=== PATIENT | female | born 1980 | race Two or more races ===

== ENCOUNTER 2017-08-28 11:19 | Emergency (ER) | payer OTHER | END 2017-08-28 11:34 | disposition home or self-care (01) | LOC: FTE 11:19 → E/R 11:34 | DX: J20.9 Acute bronchitis, unspecified (principal); J32.9 Chronic sinusitis, unspecified | CPT/HCPCS: 99284; Z7502 ==

== ENCOUNTER 2018-08-31 10:03 | Emergency (ER) | payer OTHER ==
[2018-08-31] MEDS: IBUPROFEN 600 MG TAB PO (10:53)
== END 2018-08-31 12:53 | disposition home or self-care (01) ==
LOC: FTE 10:03
DX: M54.6 Pain in thoracic spine (principal); M79.10 Myalgia, unspecified site
CPT/HCPCS: 72072; 81025; 99283-25

== ENCOUNTER 2018-11-12 18:58 | Emergency (ER) | payer OTHER ==
[2018-11-12 21:08] LABS: ADD UMIC NO; UR ASCORBIC ACID NEGATIVE (NEGATIVE); UR BILIRUBIN (Dip) NEGATIVE (NEGATIVE); UR BLOOD (Dip) NEGATIVE (NEGATIVE); UR CLARITY CLEAR (CLEAR); UR COLOR YELLOW (YELLOW); UR GLUCOSE (Dip) NEGATIVE (NEGATIVE); UR KETONES (Dip) NEGATIVE (NEGATIVE); UR LEUKOCYTE ESTERASE (Dip) NEGATIVE Leu/ul (NEGATIVE); UR NITRITE (Dip) NEGATIVE (NEGATIVE); UR SPECIFIC GRAVITY (Dip) 1.015 (1.003-1.030); UR TOTAL PROTEIN (Dip) NEGATIVE (NEGATIVE); UR UROBILINOGEN (Dip) NEGATIVE (NEGATIVE)
[2018-11-12] MEDS: CYCLOBENZAPRINE 10 MG TAB PO (21:14)
[2018-11-12] MEDS: KETOROLAC 30 MG INJ IM (21:14)
[2018-11-12] MEDS: morphine 4 MG/ML VIAL IM ×2 (21:15→21:31)
[2018-11-12] MEDS: SOD CHLORIDE 0.9% 1,000 ML IV (22:12)
[2018-11-12] MEDS: ONDANSETRON 4 MG INJ IV (22:13)
[2018-11-12] MEDS: FAMOTIDINE 20 MG INJ IV (22:13)
[2018-11-12] MEDS: METHYLPREDNISOLONE 125 MG INJ IV (22:13)
[2018-11-12] MEDS: DIPHENHYDRAMINE 50 MG INJ IV (22:13)
== END 2018-11-13 00:13 | disposition home or self-care (01) ==
LOC: FTE 11-13 00:13
DX: M54.42 Lumbago with sciatica, left side (principal); M62.830 Muscle spasm of back
CPT/HCPCS: 81003; 81025; 87086; 96372; 96374; 96375; 99284-25

== ENCOUNTER 2018-12-09 11:19 | Emergency (ER) | payer OTHER | END 2018-12-09 12:06 | disposition home or self-care (01) | LOC: FTE 11:19 | DX: K13.79 Other lesions of oral mucosa (principal); M62.838 Other muscle spasm | CPT/HCPCS: 99282; Z7502 ==